=== PATIENT | female | born 1990 | race Caucasian/White ===

== ENCOUNTER → 2016-10-08 | Outpatient (CLI) | payer OTHER ==
--- NOTE | 2016-10-09 07:14 | CT ---
EXAMINATION TYPE: CT sinus wo con DATE OF EXAM: 10/08/2016 5:38 PM COMPARISON: NONE HISTORY: Pt states of chronic nose bleeds. Chronic sinusitis with diminished sense of smell per order . CT DLP: 614 mGycm. Automated Exposure Control for Dose Reduction was Utilized. TECHNIQUE: CT scan of the sinuses is performed without contrast, axial images are obtained, coronal r eformatted images are also reviewed. FINDINGS: The paranasal sinuses including the frontal, ethmoid, sphenoid, and maxillary sinuses bila terally are well-aerated without abnormal opacification. The ostiomeatal complex is patent bilateral ly on the coronal images. Visualized portion of mastoid air cells show no abnormal opacification. The globes are intact bilate rally. IMPRESSION: The sinuses are clear and the ostiomeatal complex is patent bilaterally.
== END | disposition home or self-care (01) ==
LOC: RADCTMAIN 17:15
PROVIDERS: ATTEND Otolaryngology
DX: J32.9 Chronic sinusitis, unspecified (principal); R43.9 Unspecified disturbances of smell and taste
CPT/HCPCS: 70486

== ENCOUNTER 2020-03-09 04:05 | Inpatient (IN) | payer BC ==
[2020-03-09] MEDS ORDERED: AMPICILLIN 2,000 MG in SODIUM CHLORIDE 0.9% 100 ML IVPB STA (04:32)
[2020-03-09] MEDS ORDERED: CARBOPROST TROMETHAMINE 250 MCG/ML 1 ML AMP IM PRN (04:32)
[2020-03-09] MEDS ORDERED: OXYTOCIN 10 UNIT/ML 1 ML VIAL IM PRN (04:32)
[2020-03-09] MEDS ORDERED: METHYLERGONOVINE 0.2 MG/ML 1 ML AMP IM PRN (04:32)
[2020-03-09] MEDS ORDERED: TERBUTALINE 1 MG/ML VIAL SQ PRN (04:32)
[2020-03-09] MEDS ORDERED: LIDOCAINE 0.5% (PF) 5 MG/ML (50 ML SDV) SQ PRN (04:32)
[2020-03-09] MEDS ORDERED: OXYTOCIN 30 UNITS/500 ML NS 30 UNIT in SALINE 1 500ML.BAG IV SCH (04:45)
[2020-03-09] MEDS ORDERED: LACTATED RINGERS 1,000 ML IV SCH (04:45)
[2020-03-09 05:12] LABS: Basophils % (A) 0 %; Eosinophils # (A) 0.1 k/uL (0-0.7); Eosinophils % (A) 1 %; HGB 11.4 gm/dL (11.4-16.0); Lymphocytes # (A) 2.7 k/uL (1.0-4.8); Lymphocytes % (A) 30 %; MCH 30.9 pg (25.0-35.0); MCHC 33.4 g/dL (31.0-37.0); MCV 92.5 fL (80.0-100.0); Mean Platelet Volume 8.5; Monocytes # (A) 0.4 k/uL (0-1.0); Monocytes % (A) 5 %; Neutrophils # (A) 5.5 k/uL (1.3-7.7); Neutrophils % (A) 62 %; Platelet Count 229 k/uL (150-450); RBC 3.67 m/uL (3.80-5.40); RDW 13.3 % (11.5-15.5); WBC 8.9 k/uL (3.8-10.6)
--- NOTE | 2020-03-09 07:19 | P.HPOB ---
History of Present Illness H&P Date: 03/09/20 Chief Complaint: Leaking of fluid This patient is a pleasant 29-year-old 1 para 0 female estimated date of confinement 03/31/2020 estimated gestational age 36-6/7 weeks gestation who presents to labor and delivery with complaints of gush of fluid at approximately 3:00 this morning. Patient's care has been complicated by diagnosis of bicornuate uterus and complete chorioamniotic separation at 35 weeks. Previous to her 35 week ultrasound her care had been uncomplicated, however she was thought to have an amniotic band on routine ultrasound at 35 weeks and was referred to maternal- medicine. There are ultrasound did not show amniotic band syndrome however did show complete separation and what is thought to be a bicornate uterus or large uterine septum. Their recommendations were close antepartum surveillance and delivery after 37 weeks. care is per Dr. Keller. Review of Systems Genitourinary: Reports Menstruation: Reports amenorrhea Past Medical History Past Medical History: No Reported History History of Any Multi-Drug Resistant Organisms: None Reported Past Surgical History: No Surgical Hx Reported Past Anesthesia/Blood Transfusion Reactions: No Reported Reaction Past Psychological History: No Psychological Hx Reported Smoking Status: Never smoker Past Alcohol Use History: None Reported Past Drug Use History: None Reported - Past Family History Mother Family Medical History: Diabetes Mellitus, Hypertension Additional Family Medical History / Comment(s): 2019 "mini stroke" Medications and Allergies Home Medications Medication Instructions Recorded Confirmed Type Pnv No.95/Ferrous Fum/Folic AC 1 each PO DAILY 03/09/20 03/09/20 History [ Multivitamin Tablet] Allergies Allergy/AdvReac Type Severity Reaction Status Date / Time No Known Allergies Allergy Verified 03/09/20 04:23 Exam Vital Signs Temp Pulse Resp BP Pulse Ox 03/09/20 04:32 96.9 F L 92 18 126/84 98 03/09/20 04:24 96.9 F L 92 18 130/82 98 Intake and Output 03/08/20 03/09/20 03/09/20 22:59 06:59 14:59 Intake Total 50 Balance 50 Intake: Oral 50 Other: # Voids 1 Weight 104.326 kg - OBG Physical Exam Abdomen: bowel sounds normal, no diffuse tenderness, no bruit present, no guarding noted, no hepatomegaly, no splenomegaly, no mass Vulva: both: normal Vagina: no discharge Cervix: no lesion (Cervix is 1 cm dilated a percent effaced -2 station. There is gross rupture membranes for clear fluid), no discharge Uterus: enlarged Results blood work shows she is oh positive, rubella immune, RPR nonreactive, hepatitis B negative, Glucola was normal however she did have a low hemoglobin. Group B strep was negative. Ultrasound done by maternal medicine a pproximately 10 days ago shows estimated weight of 5 lbs. 15 oz. with above-noted findings of chorioamnionic separation and possible bicornate uterus. Result Diagrams: 03/09/20 04:55 Abnormal Lab Results - Last 24 Hours (Table) 03/09/20 Range/Units 04:55 RBC 3.67 L (3.80-5.40) m/uL Assessment and Plan Assessment: This is a pleasant 29-year-old 1 para 0 female 36-6/7 weeks gestation with premature rupture membranes, known complete separation chorioamnionic membranes, suspected bicornuate uterus. heart tones are category 1. Patient is not having any contractions and therefore proceed with induction of labor. Due to the unfavorable most of this patient's cervix and technically /suspected long labor, I'm going to prophylactically give her IV antibiotics. I did discuss in detail with the patient and her this treatment plan and expected outcome. This point we anticipate a vaginal delivery. (1) 36 to 37 weeks gestation of Current Visit: Yes Status: Acute Code(s): PNZ9486 - SNOMED Code(s): 358317773 (2) Premature rupture of membranes Current Visit: Yes Status: Acute Code(s): O42.90 - FLAKO ROM, 7TH0 BETW RUPT & ONST LABR, UNSP WEEKS OF GEST SNOMED Code(s): 07994996 (3) Bicornate uterus complicating Current Visit: Yes Status: Acute Code(s): O34.00 - MATERNAL CARE FOR UNSP CONGEN MALFORM OF UTERUS, UNSP TRI; Q51.3 - BICORNATE UTERUS SNOMED Code(s): 7224709 (4) Chorioamniotic separation, antepartum Current Visit: Yes Status: Acute Code(s): O41.8X90 - OTH DISRD OF AMNIOTIC FLUID AND MEMBRNS, UNSP TRI, UNSP SNOMED Code(s): 411622254
[2020-03-09] MEDS ORDERED: AMPICILLIN 1,000 MG in SODIUM CHLORIDE 0.9% 50 ML IVPB SCH (08:34)
[2020-03-09] MEDS ORDERED: CITRIC ACID-SODIUM CITRATE 15 ML CUP PO ONE (09:35)
[2020-03-09] MEDS ORDERED: KETOROLAC 15 MG/ML 1 ML VIAL ONE (09:40)
[2020-03-09] MEDS ORDERED: MORPHINE SULFATE (PF) 0.3 MG/0.3 ML SYR ONE (09:40)
[2020-03-09] MEDS ORDERED: OXYTOCIN 10 UNIT/ML 1 ML VIAL ONE (09:40)
[2020-03-09] MEDS ORDERED: LANOLIN CREAM 5 GM TUBE TOPICAL PRN (10:32)
[2020-03-09] MEDS ORDERED: diphenhydrAMINE 50 MG/ML 1 ML VIAL IVP PRN (10:32)
[2020-03-09] MEDS ORDERED: ONDANSETRON 4 MG/2 ML VIAL IVP PRN (10:32)
[2020-03-09] MEDS ORDERED: diphenhydrAMINE 25 MG CAP PO PRN (10:32)
[2020-03-09] MEDS ORDERED: NALOXONE 0.4 MG/ML 1 ML VIAL IV PRN (10:32)
[2020-03-09] MEDS ORDERED: ACETAMINOPHEN TAB 325 MG TAB PO PRN (10:32)
[2020-03-09] MEDS ORDERED: ZOLPIDEM 5 MG TAB PO PRN (10:32)
[2020-03-09] MEDS ORDERED: SIMETHICONE 80 MG CHEWABLE PO PRN (10:32)
[2020-03-09] MEDS ORDERED: METOCLOPRAMIDE 5 MG/ML 2 ML VIAL IVP PRN (10:32)
[2020-03-09] MEDS ORDERED: OXYTOCIN 20 UNITS/1000 ML NS 1,000 ML IV SCH (10:45)
--- NOTE | 2020-03-09 10:55 | P.OP ---
Date of Procedure: 03/09/20 Preoperative Diagnosis: #1: 36-6/7 week . #2: Bicornate uterus/uterine septum #3: Complete chorioamniotic separation #4: Nonreassuring reassuring heart tones (repetitive deep variables) remote from delivery #5: Vaginal bleeding, clinical placental abruption Postoperative Diagnosis: #1: Same. #2: Heart-shaped uterus with large uterine septum #3: Evidence of chronic placental abruption/chorioamnionic separation Procedure(s) Performed: Emergent primary low transverse section Anesthesia: spinal Surgeon: Anival Christensen Signal Processing Engineer #1: Kymberly Lafleur Estimated Blood Loss (ml): 600 Pathology: other (Placenta) Condition: stable Disposition: floor Indications for Procedure: Please see dictated H&P for intimate details of this patient's admission. Brief summary is a pleasant 29-year-old 1 para 0 female 36-6/7 weeks gestation who is admitted this morning with spontaneous rupture membranes at about 3:00. Patient has a suspected bicornuate uterus/uterine septum and complete chorioamniotic separation. On admission heart tones are category 1. Patient is 1 cm dilated with rare contractions. At that time we elected to proceed with Pitocin induction of labor. Approximately hour and a half later the patient began having some bright red bleeding and repetitive variable decelerations to the 60s that lasted approximately 30-60 seconds. The patient and I and her previously discussed her risk of placental abruption or intolerance of labor at this time I recommended proceed with immediate delivery by section. I did briefly explain this procedure to the patient and her , risks and benefits. A consent is obtained. Operative Findings: This is a vigorous viable male infant Apgars 8 and 9 delivery time was 0956 hrs. appeared grossly normal. Patient had a heart-shaped uterus with a large (5-6 cm) thickened central uterine septum. The infant was in the left side of the uterus. There are several old appearing clots consistent with probable county assessor val abruption. The fallopian tubes and ovaries appear normal. Description of Procedure: This patient has a Whitten catheter placed to straight drain. She is subsequent taken to the operating room where she sat up and spinal anesthetic is administered without incident. With adequate level of anesthesia she has abdominal prep and drape. Scalpels and taken Pfannenstiel skin incision is then made. A second scalpel is taken down to the fascia and the fascia scored with a knife. Fascial incision extended bilaterally using the Muller scissors. Fascial stent dissected off the rectus muscles sharply. Rectus muscles are and the peritoneum identified and entered sharply. Peritoneal incision extended superior and inferior without difficulty. Bladder blade is then placed. Bladder peritoneum was taken sharply off the lower uterine segment. Scalpels and taken a low transverse uterine incision is then made. Using a hemostat I enter the uterine cavity bluntly and there is loss of small amount of clear fluid. This incision is then extended bluntly. The infant's head is then gently guided through the incision with fundal pressure. Mouth and nares are bu lb suctioned. There is no evidence of a nuchal cord. With gentle pressure we then deliver the rest of this 's body. This is a vigorous viable male Apgars are 8 and 9 delivery time was 0956 hours. Bull Bucker was present for delivery. After delivery of the infant is inspected the uterine cavity and the placenta is found to be in the left side of the uterus. There is a very large septum originating from the fundus, centrally. This feels to be about 5-6 cm in length and at least a centimeter in thickness. The placenta is removed manually. There also are several old-appearing clots or tissue that comes with the placenta consistent with suspected chronic abruption. The uterus is externalized. Does appear to be heart shaped but not necessarily bicornate. Both tubes and ovaries appear normal for term gestation. I then demarcated the uterine incision with Norton clamps. Incision is then closed using 0 Vicryl running locked fashion 2 layers in excellent hemostasis is noted. Excess fluid is removed from the abdomen and pelvis. Uterus is placed back into the abdomen. The parietal peritoneum was then closed using 0 Vicryl running fashion. The rectus muscles reapproximated using 0 Vicryl interrupted fashion. Fascia is then closed using 0 PDS. Fascial incision is intact and hemostatic. Subcutaneous tissues and closed using a 3-0 Vicryl. Skin is and closed using renetta. All counts are correct 3. There are no complications. Infant and mother are stable delivery room.
[2020-03-09] MEDS: KETOROLAC 15 MG/ML 1 ML VIAL IVP PRN (19:28)
[2020-03-09] MEDS: SENNOSIDES-DOCUSATE SODIUM 1 EACH TAB PO SCH (19:29)
[2020-03-10] MEDS: KETOROLAC 15 MG/ML 1 ML VIAL IVP PRN ×2 (01:29→06:29)
[2020-03-10] MEDS: LACTATED RINGERS 1,000 ML IV SCH ×2 (05:06→05:07)
--- NOTE | 2020-03-10 06:27 | P.PN ---
Progress Note - Text Progress Note Date: 03/10/20 S/P , POD #1. Patient seen, examined, interviewed. Intra-thecal narcotic (Morphine 0.3mg) administered at time of surgery with good results overnight. Discussed with nursing, who will contact OB for alternative pain medication prn. Will re-eval prn.
[2020-03-10 07:32] LABS: Basophils % (A) 0 %; Eosinophils # (A) 0.1 k/uL (0-0.7); Eosinophils % (A) 1 %; HGB 10.6 gm/dL (11.4-16.0); Lymphocytes % (A) 18 %; MCHC 33.3 g/dL (31.0-37.0); MCV 93.2 fL (80.0-100.0); Mean Platelet Volume 8.2; Monocytes # (A) 0.5 k/uL (0-1.0); Monocytes % (A) 4 %; Neutrophils # (A) 8.5 k/uL (1.3-7.7); Neutrophils % (A) 75 %; Platelet Count 180 k/uL (150-450); RBC 3.43 m/uL (3.80-5.40); RDW 13.4 % (11.5-15.5); WBC 11.3 k/uL (3.8-10.6)
--- NOTE | 2020-03-10 07:36 | P.PNOBGPC ---
Subjective - Subjective Principal diagnosis: Status post primary low transverse postop day #1 Interval history: Patient seen and examined. Denies nausea, vomiting, chest pain, shortness of breath or calf pain. Patient reports: Reports appetite normal, Reports voiding normally, Reports pain well controlled, Reports ambulating normally : doing well Objective - Vital Signs Latest vital signs: Vital Signs Temp Pulse Resp BP Pulse Ox 03/10/20 04:00 98.3 F 75 16 121/74 03/10/20 00:00 98.3 F 77 16 125/85 03/09/20 20:00 98.3 F 72 16 122/82 03/09/20 15:44 98.7 F 86 16 129/62 98 03/09/20 12:20 81 17 111/61 03/09/20 11:50 98.0 F 88 16 121/75 03/09/20 11:20 81 17 122/57 96 03/09/20 11:05 96 16 124/54 96 03/09/20 10:50 76 16 117/67 97 03/09/20 10:43 98.3 F 88 16 127/78 98 03/09/20 10:20 98.0 F 82 16 123/71 96 Intake and Output 03/09/20 03/10/20 03/10/20 22:59 06:59 14:59 Output Total 600 900 Balance -600 -900 Output: Urine 600 900 Uretheral (Whitten) 600 - Exam Lungs: bilateral: normal Chest: Normal S1, Normal S2 Extremities: Present: normal Abdomen: Present: normal appearance, soft. Absent: distention, tenderness Incision: Present: normal, dry, intact Uterus: Present: normal, firm - Labs Labs: Abnormal Lab Results - Last 24 Hours (Table) 03/10/20 Range/Units 07:10 WBC 11.3 H (3.8-10.6) k/uL RBC 3.43 L (3.80-5.40) m/uL Hgb 10.6 L (11.4-16.0) gm/dL Hct 32.0 L (34.0-46.0) % Neutrophils # 8.5 H (1.3-7.7) k/uL Assessment and Plan (1) Status post primary low transverse section Current Visit: Yes Status: Acute Code(s): Z98.891 - HISTORY OF UTERINE SCAR FROM PREVIOUS SURGERY SNOMED Code(s): 477134978 Plan: 1. Continue postoperative care 2. Increase ambulation 3. By mouth pain medications
[2020-03-10] MEDS: SENNOSIDES-DOCUSATE SODIUM 1 EACH TAB PO SCH ×2 (10:23→21:08)
[2020-03-10] MEDS: IBUPROFEN 600 MG TAB PO PRN ×2 (12:45→18:31)
[2020-03-10] MEDS: HYDROcodone/APAP 5-325MG 1 EACH TAB PO PRN ×2 (15:40→21:08)
[2020-03-10 16:39] VITALS: RESP 18
[2020-03-11] MEDS: IBUPROFEN 600 MG TAB PO PRN (01:27)
[2020-03-11] MEDS: HYDROcodone/APAP 5-325MG 1 EACH TAB PO PRN (08:10)
[2020-03-11] MEDS: SENNOSIDES-DOCUSATE SODIUM 1 EACH TAB PO SCH (08:10)
--- NOTE | 2020-03-11 08:15 | P.DS ---
Providers Date of admission: 03/09/20 04:31 Expected date of discharge: 03/11/20 Attending physician: Aida Keller Primary care physician: Stated None - Discharge Diagnosis(es) (1) Status post primary low transverse section Current Visit: Yes Status: Acute Hospital Course: Patient presented with spontaneous rupture of membranes. She underwent a primary low transverse for variable decelerations and clinical abruption which was confirmed. She does have a bicornuate and septated uterus. Postoperative course was uncomplicated. She is ambulating voiding without difficulty. Denies nausea, vomiting, chest pain, shortness of breath or any calf pain. She'll be discharged home postoperative day #2 in stable condition to follow-up with me in one week. Plan - Discharge Summary New Discharge Prescriptions: New Ibuprofen [Motrin] 600 mg PO Q6HR PRN #30 tab PRN Reason: Mild Pain Or Fever >= 100.5 HYDROcodone/APAP 5-325MG [[place] 5-325] 1 each PO Q4HR PRN 3 Days #24 tab PRN Reason: Moderate Pain No Action Pnv No.95/Ferrous Fum/Folic AC [ Multivitamin Tablet] 1 each PO DAILY Discharge Medication List Pnv No.95/Ferrous Fum/Folic AC [ Multivitamin Tablet] 1 each PO DAILY 03/09/20 [History] HYDROcodone/APAP 5-325MG [[place] 5-325] 1 each PO Q4HR PRN 3 Days #24 tab 03/11/20 [Rx] Ibuprofen [Motrin] 600 mg PO Q6HR PRN #30 tab 03/11/20 [Rx] Follow up Appointment(s)/Referral(s): Aiad Keller DO [Doctor of Osteopathic Medicine] - 1 Week Discharge Disposition: HOME SELF-CARE
[2020-03-11 08:23] VITALS: BP 130/77; PULSE 83; TEMP 98.3
== END 2020-03-11 12:20 | disposition home or self-care (01) | DRG 786 ==
LOC: FBPOP 04:05 → 4FBP 04:31
PROVIDERS: ADMIT Obstetrics & Gynecology; ATTEND Obstetrics & Gynecology
PROC: 3E033VJ Introduction of Other Hormone into Peripheral Vein, Percutaneous Approach (ICD-10-PCS; 2020-03-09)
PROC: 10D00Z1 Extraction of Products of Conception, Low, Open Approach (ICD-10-PCS; principal; 2020-03-09 09:45)
DX: O42.113 Preterm premature rupture of membranes, onset of labor more than 24 hours following rupture, third trimester (principal); O45.93 Premature separation of placenta, unspecified, third trimester; O34.03 Maternal care for unspecified congenital malformation of uterus, third trimester; Q51.3 Bicornate uterus; O76 Abnormality in fetal heart rate and rhythm complicating labor and delivery; Z37.0 Single live birth; Z3A.36 36 weeks gestation of pregnancy; Z82.3 Family history of stroke; Z83.3 Family history of diabetes mellitus; Z82.49 Family history of ischemic heart disease and other diseases of the circulatory system
CPT/HCPCS: 59025; 84112; 85025; 86850; 86900; 86901; 88307; 99213

== ENCOUNTER 2024-05-24 10:16 | Inpatient (IN) | payer BC ==
[2024-05-21 13:49] VITALS: BMI 32.8
[2024-05-24] MEDS ORDERED: CARBOPROST TROMETHAMINE 250 MCG/ML 1 ML AMP IM PRN (10:51)
[2024-05-24] MEDS ORDERED: TRANEXAMIC 1,000 MG/100ML-NACL 1,000 MG in EMPTY BAG 1 BAG IV PRN (10:51)
[2024-05-24] MEDS ORDERED: miSOPROStoL 200 MCG TAB PO PRN (10:51)
[2024-05-24] MEDS ORDERED: METHYLERGONOVINE 0.2 MG/ML 1 ML AMP IM PRN (10:51)
[2024-05-24] MEDS ORDERED: OXYTOCIN 10 UNIT/ML 1 ML VIAL IM PRN (10:51)
[2024-05-24 11:03] LABS: Basophils % (A) 0 %; Eosinophils % (A) 0 %; HCT 33.1 % (34.0-46.0); HGB 10.8 gm/dL (11.4-16.0); Lymphocytes # (A) 1.8 k/uL (1.0-4.8); Lymphocytes % (A) 14 %; MCH 29.6 pg (25.0-35.0); MCHC 32.7 g/dL (31.0-37.0); MCV 90.4 fL (80.0-100.0); Mean Platelet Volume 8.1; Monocytes # (A) 0.5 k/uL (0-1.0); Monocytes % (A) 4 %; Neutrophils % (A) 80 %; Platelet Count 255 k/uL (150-450); RBC 3.66 m/uL (3.80-5.40); RDW 13.6 % (11.5-15.5); WBC 12.6 k/uL (3.8-10.6)
[2024-05-24] MEDS: LACTATED RINGERS 1,000 ML IV ONE (11:05)
[2024-05-24] MEDS: CITRIC ACID-SODIUM CITRATE 15 ML CUP PO ONE (11:05)
[2024-05-24] MEDS ORDERED: ONDANSETRON 4 MG/2 ML VIAL ONE (11:48)
[2024-05-24] MEDS ORDERED: MORPHINE SULFATE (PF) 0.3 MG/0.3 ML SYR ONE (11:48)
[2024-05-24] MEDS ORDERED: NALBUPHINE (ANES) 10 MG/ML - 1 ML AMP ONE (11:48)
[2024-05-24] MEDS ORDERED: DEXAMETHASONE SOD PHOSPHATE 4 MG/ML 1 ML VIAL ONE (11:48)
[2024-05-24] MEDS ORDERED: OXYTOCIN 30 UNITS/500 ML NS BAG IV ONE (11:48)
--- NOTE | 2024-05-24 12:53 | P.HPOB ---
History of Present Illness H&P Date: 05/24/24 Chief Complaint: IUP at 37-0/7 weeks, unicornuate uterus, history of section x 1 This is a 33-year-old 2 para 0-1-0-1 at 37-0/7 weeks that presents to labor and delivery for scheduled repeat section. Patient has a known history of a unicornuate uterus and P PROM with the last delivery. Patient had a placental abruption with her first in addition. Patient has been receiving routine care which has been essentially uncomplicated. Patient notes good movement denies vaginal bleeding loss of fluid or contractions. On blood work this patient is a blood type of O+, rubella status immune, hepatitis B surface engine negative, HIV negative, RPR is nonreactive, grew beta strep culture is negative. Review of Systems Constitutional: Denies chills, Denies fatigue, Denies fever Ears, nose, mouth and throat: Denies headache Cardiovascular: Reports leg edema Respiratory: Denies dyspnea Gastrointestinal: Denies nausea, Denies vomiting Genitourinary: Reports Past Medical History Past Medical History: GERD/Reflux History of Any Multi-Drug Resistant Organisms: None Reported Past Surgical History: Section Additional Past Surgical History / Comment(s): x 1 Past Anesthesia/Blood Transfusion Reactions: No Reported Reaction Additional Past Anesthesia/Blood Transfusion Reaction / Comment(s): Has meri had anethesia to date. Past Psychological History: No Psychological Hx Reported Smoking Status: Never smoker Past Alcohol Use History: None Reported Past Drug Use History: None Reported - Past Family History Mother Family Medical History: Diabetes Mellitus, Hypertension Additional Family Medical History / Comment(s): 2019 "mini stroke" Medications and Allergies Home Medications Medication Instructions Recorded Confirmed Type Pnv No.95/Ferrous Fum/Folic AC 1 each PO QAM 03/09/20 05/24/24 History [ Multivitamin Tablet] Allergies Allergy/AdvReac Type Severity Reaction Status Date / Time No Known Allergies Allergy Verified 05/24/24 11:01 Exam Osteopathic Statement: *. No significant issues noted on an osteopathic structural exam other than those noted in the History and Physical/Consult. Vital Signs Temp Pulse Resp BP Pulse Ox 05/24/24 10:57 96.7 F L 100 16 139/89 100 Intake and Output 05/23/24 05/24/24 05/24/24 22:59 06:59 14:59 Other: Weight 106.594 kg Targeted physical exam is performed this date in general this is a well-nourish ed well-developed female in no acute distress, breathing is nonlabored, heart has a regular, abdomen is gravid, exam is deferred, heart tones noted to be category 1 and she is not shawn. Results Result Diagrams: 05/24/24 10:45 Abnormal Lab Results - Last 24 Hours (Table) 05/24/24 Range/Units 10:45 WBC 12.6 H (3.8-10.6) k/uL RBC 3.66 L (3.80-5.40) m/uL Hgb 10.8 L (11.4-16.0) gm/dL Hct 33.1 L (34.0-46.0) % Neutrophils # 10.0 H (1.3-7.7) k/uL Assessment and Plan (1) Term Current Visit: Yes Status: Acute Code(s): Z34.90 - ENCNTR FOR SUPRVSN OF NORMAL , UNSP, UNSP TRIMESTER SNOMED Code(s): 02389611 (2) History of section Current Visit: Yes Status: Acute Code(s): Z98.891 - HISTORY OF UTERINE SCAR FROM PREVIOUS SURGERY SNOMED Code(s): 875578252 (3) Bicornate uterus complicating Current Visit: No Status: Acute Code(s): O34.00 - MATERNAL CARE FOR UNSP CONGEN MALFORM OF UTERUS, UNSP TRI; Q51.3 - BICORNATE UTERUS SNOMED Code(s): 6911818 Plan: 33-year-old -1-0-1 at 37-0/7 weeks that presents for repeat section. Given patient's history of unicornuate uterus section at 37 weeks was recommended. Patient is counseled on need for delivery at 37 weeks given uterine anomaly. Patient states understanding. Multiple questions were answered. Last delivery was discussed in detail with PPROM and placental abruption. Patient denies concerns anesthesia in room and will proceed to operating suite.
[2024-05-24] MEDS ORDERED: ZOLPIDEM 5 MG TAB PO PRN (13:00)
[2024-05-24] MEDS ORDERED: METOCLOPRAMIDE 5 MG/ML 2 ML VIAL IVP PRN (13:00)
[2024-05-24] MEDS ORDERED: ONDANSETRON 4 MG/2 ML VIAL IVP PRN (13:00)
[2024-05-24] MEDS ORDERED: diphenhydrAMINE 50 MG/ML 1 ML VIAL IVP PRN ×2 (13:00)
[2024-05-24] MEDS ORDERED: NALOXONE 0.4 MG/ML 1 ML VIAL IV PRN (13:00)
[2024-05-24] MEDS ORDERED: diphenhydrAMINE 50 MG CAP PO PRN (13:00)
[2024-05-24] MEDS ORDERED: diphenhydrAMINE 25 MG CAP PO PRN (13:00)
--- NOTE | 2024-05-24 13:00 | P.OP ---
Date of Procedure: 05/24/24 Preoperative Diagnosis: IUP at 37 and 0/7, unicornuate uterus, history of section x 1 desires repeat Postoperative Diagnosis: Same Procedure(s) Performed: Repeat section with vacuum assist Anesthesia: spinal Surgeon: Afua Kumar Lumber Bearer #1: Amy Sims Estimated Blood Loss (ml): 673 IV fluids (ml): 1,500 Urine output (ml): 300 (Clear yellow) Pathology: none sent Condition: stable Disposition: observation Indications for Procedure: History of section x 1 desires repeat, unicornuate uterus with large septum Operative Findings: Unicornuate uterus with large septum, viable male infant delivered at 1220, weight of 7 pounds 12 ounces via vacuum assist Description of Procedure: Patient was taken back to the operating suite where spinal anesthesia was found to be adequate by the anesthesia department. She was then prepped and draped in normal sterile fashion in the dorsal supine position. A Pfannenstiel skin incision was made with a scalpel and carried through to the underlying layer of fascia with the scalpel. Fascia was incised in the midline and extended laterally. The superior aspect of the fascial incision was grasped with Fercho clamps, elevated and the underlying rectus muscle was dissected off sharply. The inferior aspect of the fascial incision was then grasped with Fercho clamps, elevated and the underlying rectus muscle was dissected off sharply. The rectus muscles were the midline the peritoneum was identified and entered. Hysterotomy incision was made with a scalpel, upon rupture of membranes clear fluid was obtained. The infant was head was noted and a OT presentation, after multiple attempts to deliver the head a vacuum was applied and the head was delivered via vacuum assist. The suction was disengaged and the infant was delivered fully the umbilical cord was doubly clamped and cut and the infant was handed off to waiting RN, spontaneous cry was noted. The placenta was then delivered manually intact with a three-vessel cord, multiple calcifications were noted on the membranous portion of the placenta. The uterus was exteriorized and cleared of all clots and debris. The hysterotomy incision was closed with a running locked 0 Vicryl. A second imbricating suture was used to obtain hemostasis. The gutters were cleared of all clots and debris and the uterine incision was inspected. A small amount of bleeding was noted on the midportion, and a [id number] suture was used to obtain hemostasis. Hemostasis was then noted. The peritoneum was then loosely reapproximated. The rectus muscles were inspected and found to be hemostatic. The fascia was closed with 0 Vicryl in a running fashion from 1 lateral edge to the other. The subcutaneous tissue was irrigated found to be hemostatic and closed with 3-0 Vicryl. The skin was closed with 4-0 Vicryl in a subcuticular fashion. Steri-Strips and sterile dressings were applied. All counts noted be correct x 2. Patient and infant tolerated delivery well and are resting comfortably.
[2024-05-24] MEDS: ACETAMINOPHEN IV (For NPO) 1,000 MG in EMPTY BAG 1 BAG IVPB ONE (14:48)
[2024-05-24] MEDS: LACTATED RINGERS 1,000 ML IV SCH ×2 (14:49)
[2024-05-24] MEDS: IBUPROFEN 800 MG TAB PO SCH (18:34)
[2024-05-24] MEDS: IBUPROFEN IV 800 MG in SODIUM CHLORIDE 0.9% 250 ML IV ONE (20:10)
[2024-05-24] MEDS: SENNOSIDES-DOCUSATE SODIUM 1 EACH TAB PO SCH (21:02)
[2024-05-24] MEDS: ACETAMINOPHEN TAB 500 MG TAB PO SCH (23:19)
[2024-05-25 07:07] LABS: Basophils % (A) 0 %; Eosinophils # (A) 0.1 k/uL (0-0.7); Eosinophils % (A) 1 %; HCT 29.1 % (34.0-46.0); HGB 9.4 gm/dL (11.4-16.0); Hypochromasia Slight; Lymphocytes # (A) 2.8 k/uL (1.0-4.8); Lymphocytes % (A) 27 %; MCH 30.1 pg (25.0-35.0); MCHC 32.4 g/dL (31.0-37.0); MCV 92.7 fL (80.0-100.0); Mean Platelet Volume 7.9; Monocytes # (A) 0.5 k/uL (0-1.0); Monocytes % (A) 5 %; Neutrophils # (A) 6.7 k/uL (1.3-7.7); Neutrophils % (A) 65 %; Platelet Count 201 k/uL (150-450); RBC 3.14 m/uL (3.80-5.40); RDW 13.6 % (11.5-15.5); WBC 10.4 k/uL (3.8-10.6)
--- NOTE | 2024-05-25 08:40 | P.PNOBGPC ---
Subjective - Subjective Principal diagnosis: Postop day 1, repeat section Interval history: Patient is doing well overall. She is ambulating and voiding without difficulty. She is tolerating a regular diet without nausea or vomiting. Lochia is noted to be minimal. Infant remains in the nursery secondary to a elevated CRP and on IV antibiotics. Patient reports: Reports appetite normal, Reports voiding normally, Reports pain well controlled, Reports ambulating normally : doing well (Special care nursery) Objective - Vital Signs Latest vital signs: Vital Signs Temp Pulse Resp BP Pulse Ox 05/24/24 23:10 98.8 F 70 16 107/71 98 05/24/24 19:50 99.0 F 81 16 115/74 98 05/24/24 16:59 97.6 F 73 16 124/73 100 05/24/24 14:59 97.6 F 67 16 104/64 99 05/24/24 14:44 62 16 101/61 99 05/24/24 14:29 63 16 98/57 98 05/24/24 14:14 65 16 106/63 97 05/24/24 13:59 72 16 112/64 97 05/24/24 13:44 72 16 113/60 98 05/24/24 13:29 93 16 111/69 98 05/24/24 13:14 76 16 111/69 97 05/24/24 12:59 96.6 F L 81 16 114/70 98 05/24/24 10:57 96.7 F L 100 16 139/89 100 Intake and Output 05/24/24 05/25/24 05/25/24 22:59 06:59 14:59 Intake Total 1100 Output Total 2300 1300 Balance -1200 -1300 Intake: Oral 1100 Output: Urine 2300 1300 Uretheral (Whitten) 2300 Other: Voiding Method Indwelling Catheter # Voids 1 - Exam Extremities: Present: normal, edema Abdomen: Present: normal appearance, soft Incision: Present: normal, dry, intact Uterus: Present: normal, firm - Labs Labs: Abnormal Lab Results - Last 24 Hours (Table) 05/24/24 05/25/24 Range/Units 10:45 06:16 WBC 12.6 H (3.8-10.6) k/uL RBC 3.66 L 3.14 L (3.80-5.40) m/uL Hgb 10.8 L 9.4 L (11.4-16.0) gm/dL Hct 33.1 L 29.1 L (34.0-46.0) % Neutrophils # 10.0 H (1.3-7.7) k/uL Assessment and Plan (1) Term Current Visit: Yes Status: Acute Code(s): Z34.90 - ENCNTR FOR SUPRVSN OF NORMAL , UNSP, UNSP TRIMESTER SNOMED Code(s): 89240702 (2) History of section Current Visit: Yes Status: Acute Code(s): Z98.891 - HISTORY OF UTERINE SCAR FROM PREVIOUS SURGERY SNOMED Code(s): 096271824 (3) Bicornate uterus complicating Current Visit: No Status: Acute Code(s): O34.00 - MATERNAL CARE FOR UNSP CONGEN MALFORM OF UTERUS, UNSP TRI; Q51.3 - BICORNATE UTERUS SNOMED Code(s): 5780018
--- NOTE | 2024-05-25 08:42 | P.PN ---
Progress Note - Text Progress Note Date: 05/25/24 Postoperative day 1 status post section under spinal anesthesia, and intrathecal morphine given for postoperative analgesia, patient doing well, there is no anesthesia related complications, Patient had no headache, vital signs stable , Assessment and plan= postop day 1 status post , doing well there is no anesthesia related complication.
[2024-05-25] MEDS: PRENATAL VIT-IRON-FOLIC ACID 1 EACH TABLET PO SCH (10:29)
[2024-05-25] MEDS: IRON POLYSACCHARIDES COMPLEX 150 MG CAP PO SCH (10:29)
[2024-05-25] MEDS: SIMETHICONE 80 MG CHEWABLE PO PRN (19:36)
--- NOTE | 2024-05-26 09:03 | P.PNOBGPC ---
Subjective - Subjective Principal diagnosis: Postop day 2, repeat section Interval history: Patient is doing well postoperatively. She is ambulating and voiding without difficulty. She is tolerating a regular diet. States pain is well-controlled. Infant remains in the nursery on high flow oxygen. Patient reports: Reports appetite normal, Reports voiding normally, Reports pain well controlled, Reports ambulating normally [place]: doing well Objective - Vital Signs Latest vital signs: Vital Signs Temp Pulse Resp BP Pulse Ox 05/25/24 23:15 97.6 F 84 16 111/73 97 05/25/24 16:00 97.9 F 89 16 113/67 Intake and Output 05/25/24 05/26/24 05/26/24 22:59 06:59 14:59 Intake Total 1200 Output Total 500 Balance 700 Intake: Oral 1200 Output: Urine 500 Other: # Voids 2 1 - Exam Extremities: Present: normal, edema Abdomen: Present: normal appearance, soft Incision: Present: normal, dry, intact Uterus: Present: normal, firm Assessment and Plan (1) Term Current Visit: Yes Status: Acute Code(s): Z34.90 - ENCNTR FOR SUPRVSN OF NORMAL , UNSP, UNSP TRIMESTER SNOMED Code(s): 14750804 (2) History of section Current Visit: Yes Status: Acute Code(s): Z98.891 - HISTORY OF UTERINE SCAR FROM PREVIOUS SURGERY SNOMED Code(s): 873723903 (3) Bicornate uterus complicating Current Visit: No Status: Acute Code(s): O34.00 - MATERNAL CARE FOR UNSP CONGEN MALFORM OF UTERUS, UNSP TRI; Q51.3 - BICORNATE UTERUS SNOMED Code(s): 4269464 (4) Status post primary low transverse section Current Visit: No Status: Acute Code(s): Z98.891 - HISTORY OF UTERINE SCAR FROM PREVIOUS SURGERY SNOMED Code(s): 862609057 Plan: Patient is doing well postoperatively. Will plan to continue routine postoperative care.
--- NOTE | 2024-05-27 08:33 | P.PNOBGPC ---
Subjective - Subjective Principal diagnosis: Postop day #3, repeat section Interval history: Patient is resting comfortably upon entry to the room. remains in the nursery on high flow. Improvement in status per senior staff accountant. Lochia noted to be minimal to moderate. Pain well-controlled. No concerns Patient reports: Reports appetite normal, Reports voiding normally, Reports pain well controlled, Reports ambulating normally : doing well Objective - Vital Signs Latest vital signs: Vital Signs Temp Pulse Resp BP Pulse Ox 05/26/24 23:40 97.5 F L 91 16 127/82 96 05/26/24 16:00 97.8 F 72 18 120/72 97 Intake and Output 05/26/24 05/27/24 05/27/24 22:59 06:59 14:59 Intake Total 600 Balance 600 Intake: Oral 600 Other: # Voids 1 1 - Exam Extremities: Present: edema Abdomen: Present: normal appearance, soft Incision: Present: normal, dry, intact Uterus: Present: normal, firm Assessment and Plan (1) Term Current Visit: Yes Status: Acute Code(s): Z34.90 - ENCNTR FOR SUPRVSN OF NORMAL , UNSP, UNSP TRIMESTER SNOMED Code(s): 12917943 (2) History of section Current Visit: Yes Status: Acute Code(s): Z98.891 - HISTORY OF UTERINE SCAR FROM PREVIOUS SURGERY SNOMED Code(s): 327196493 (3) Bicornate uterus complicating Current Visit: No Status: Acute Code(s): O34.00 - MATERNAL CARE FOR UNSP CONGEN MALFORM OF UTERUS, UNSP TRI; Q51.3 - BICORNATE UTERUS SNOMED Code(s): 1079673 (4) Status post primary low transverse section Current Visit: No Status: Acute Code(s): Z98.891 - HISTORY OF UTERINE SCAR FROM PREVIOUS SURGERY SNOMED Code(s): 921974821 Plan: Patient is doing well postoperatively. Plan to continue routine postoperative care. Infant care per pediatrics.
[2024-05-28 01:09] VITALS: PULSE 99; RESP 16
[2024-05-28 07:56] VITALS: BP 145/68; TEMP 97.6
--- NOTE | 2024-05-28 08:42 | P.DS ---
Providers Date of admission: 05/24/24 10:16 Expected date of discharge: 05/28/24 Attending physician: Afua Kumar Primary care physician: Stated None - Discharge Diagnosis(es) (1) Term Current Visit: Yes Status: Acute (2) History of section Current Visit: Yes Status: Acute (3) Bicornate uterus complicating Current Visit: No Status: Acute (4) Status post primary low transverse section Current Visit: No Status: Acute Hospital Course: This is a 33-year-old 2 now para 1-1-0-2, the presented to labor and delivery on 05/24 for scheduled repeat section. Patient has a known history of a bicornate uterus with a large septum. History of PPROM and placental abruption with her first . Delivered at 36 and 6. Patient has been receiving routine care which has been essentially uncomplicated. For full details on this patient please see the dictated history and physical. Patient was taken back to the operating suite where spinal anesthesia was found to be adequate. She delivered a viable male at 1220, weight of 7 pounds 12 ounces, Apgars of 9 and 9 at 1 and 5 minutes respectively. For full details see the dictated operative report. Patient's postoperative course has been uneventful. This postoperative day #4 she is ambulating and voiding without difficulty. She is tolerating a regular diet without nausea or vomiting. She states her pain is well-controlled. She denies concerns. She would like discharge home today. remains in the nursery on high flow oxygen and is currently being treated for pneumonia. Patient Condition at Discharge: Good Plan - Discharge Summary Discharge Rx Participant: No New Discharge Prescriptions: No Action Pnv No.95/Ferrous Fum/Folic AC [ Multivitamin Tablet] 1 each PO QAM Discharge Medication List Pnv No.95/Ferrous Fum/Folic AC [ Multivitamin Tablet] 1 each PO QAM 03/09/20 [History] Follow up Appointment(s)/Referral(s): Afua Kumar DO [Doctor of Osteopathic Medicine] - 1 Week Patient Instructions/Handouts: (DC), (GEN) Activity/Diet/Wound Care/Special Instructions: Aqni-czn-mfzwlvi ibuprofen 600 mg or 3 tablets every 6 hours as needed for pain. Patient is to make a routine postoperative check in 2 weeks. Incision care is reviewed. Should she have new concerns prior to her postop appointment she is urged to call the office. Discharge Disposition: HOME SELF-CARE
== END 2024-05-28 11:50 | disposition home or self-care (01) | DRG 788 ==
LOC: 4FBP 10:16
PROVIDERS: ADMIT Obstetrics & Gynecology Obstetrics; ATTEND Obstetrics & Gynecology Obstetrics
PROC: 10D00Z1 Extraction of Products of Conception, Low, Open Approach (ICD-10-PCS; principal; 2024-05-24 12:00)
DX: O34.03 Maternal care for unspecified congenital malformation of uterus, third trimester (principal); Z37.0 Single live birth; O34.211 Maternal care for low transverse scar from previous cesarean delivery; Q51.3 Bicornate uterus; Z3A.37 37 weeks gestation of pregnancy
CPT/HCPCS: 85025; 86850; 86900; 86901; 88307